=== PATIENT | male | born 1960 | race Caucasian/White ===

== ENCOUNTER 2017-06-20 05:15 | Emergency (ER) | payer MEDICAID, OTHER ==
[~2017-06-20] VITALS: Ht 180.3 cm; Wt 100.0 kg
[~2017-06-20 05:15] MED LIST: ADVAI250I PO; ALBU8I INH; DEPA125T PO; DEPA500T3 PO; FOLI1 PO; THIA50CA PO
[2017-06-20] MEDS ORDERED: PHEN100C PO (05:29)
[2017-06-20] MEDS ORDERED: FAMO20TA2 PO (05:29)
[2017-06-20] MEDS ORDERED: MAPA325T PO (05:29)
[2017-06-20] MEDS ORDERED: DIVA500T PO (05:29)
[2017-06-20] MEDS ORDERED: DONE10TA7 PO (05:29)
[2017-06-20] MEDS ORDERED: TRAZ50TA12 PO (05:29)
[2017-06-20] MEDS ORDERED: LEVO50TA4 PO (05:29)
[2017-06-20] MEDS ORDERED: LORA-373 PO (05:29)
[2017-06-20] MEDS ORDERED: METH500T3 PO (05:29)
[2017-06-20] MEDS ORDERED: ESCI20TA PO (05:29)
[2017-06-20] MEDS ORDERED: ADVA250A INH (05:29)
[2017-06-20] MEDS ORDERED: PHEN300C3 PO (05:29)
[2017-06-20] MEDS ORDERED: HYDR50TA94 PO (05:29)
[2017-06-20] MEDS ORDERED: ALBUAER3 INH (05:29)
[2017-06-20 05:40] VITALS: BP 123/84; PULSE 73; RESP 18; TEMP 98.7
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
[2017-06-20 06:38] LABS: AUTOMATED NEUTROPHIL # 2.6 TH/MM3 (1.8-7.7); BASOPHIL % 0.7 % (0.0-2.0); EOSINOPHIL # 0.4 TH/MM3 (0-0.4); EOSINOPHIL % 6.1 % (0.0-4.0); HEMATOCRIT 39.7 % (39.0-51.0); HEMO FLAGS DIFF FINAL; LYMPH % 44.7 % (9.0-44.0); LYMPHOCYTE # 2.9 TH/MM3 (1.0-4.8); MEAN CELL VOLUME 103.9 FL (80.0-100.0); MEAN CORPUSCULAR HGB CONC 33.7 % (32.0-36.0); MONO % 8.4 % (0.0-8.0); NEUT % 40.1 % (16.0-70.0); PLATELET COUNT 246 TH/MM3 (150-450); RED BLOOD COUNT 3.82 MIL/MM3 (4.50-5.90); RED CELL DISTRIBUTION WIDTH 13.8 % (11.6-17.2); WHITE BLOOD COUNT 6.5 TH/MM3 (4.0-11.0)
[2017-06-20 06:41] LABS: ANION GAP 5 MEQ/L (5-15); BICARBONATE 30.9 MEQ/L (21.0-32.0); BLOOD UREA NITROGEN 21 MG/DL (7-18); CHLORIDE 104 MEQ/L (98-107); GLOMERULAR FILTRATION RATE 93 ML/MIN (>89); POTASSIUM 4.1 MEQ/L (3.5-5.1); SODIUM (NA) 140 MEQ/L (136-145)
[2017-06-20 06:42] LABS: ALCOHOL LESS THAN 3 MG/DL (0-5)
[2017-06-20 11:20] VITALS: BP 136/86; PULSE 74; RESP 18; TEMP 97.7; O2SAT 96
[2017-06-20] MEDS ORDERED: DIVALPROEX DR 500 MG TABEC PO ONE (12:45)
[2017-06-20] MEDS ORDERED: PHENYTOIN SODIUM 100 MG CAP PO ONE (12:45)
[2017-06-20 17:04] VITALS: BP 101/58; PULSE 75; RESP 18
[2017-06-20 20:22] VITALS: BP 111/75; PULSE 88; RESP 20; O2SAT 93
[2017-06-20] MEDS ORDERED: ALBUTEROL SULFATE 90 MCG/ACT HFA 8 GM INHALER INH PRN (21:15)
[2017-06-20] MEDS ORDERED: traZODone HCL 50 MG TAB PO SCH (21:30)
[2017-06-20] MEDS ORDERED: DONEPEZIL HCL 5 MG TAB PO SCH (21:30)
[2017-06-20] MEDS ORDERED: PHENYTOIN SODIUM 100 MG CAP PO SCH (21:30)
[2017-06-20] MEDS: LORazepam 0.5 MG TAB PO SCH (22:13)
[2017-06-20] MEDS: DIVALPROEX DR 500 MG TABEC PO SCH (22:13)
[2017-06-20 22:42] VITALS: BP 104/58; PULSE 68; RESP 18; O2SAT 94
[2017-06-21 06:26] VITALS: BP 120/66; PULSE 81; RESP 18; O2SAT 93
[2017-06-21] MEDS ORDERED: hydrOXYzine HCL 50 MG TAB PO SCH (09:00)
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
--- NOTE | 2017-06-21 09:24 | PD ---
Physical Exam Time Seen by Provider: 09:20 ERNESTO Aguayo has evaluated the patient and lifted Conn act initially be discharged back to his living facility. Data Data Last Documented VS Vital Signs Date Time Temp Pulse Resp B/P (MAP) Pulse Ox O2 Delivery O2 Flow Rate FiO2 06/21/17 06:26 81 18 120/66 (84) 93 06/20/17 22:42 Room Air 06/20/17 11:20 97.7 Orders Orders Complete Blood Count With Diff (06/20/17 05:31) Basic Metabolic Panel (Bmp) (06/20/17 05:31) Psych Screen (06/20/17 05:31) Drug Screen, Random Urine (06/20/17 05:31) Alcohol (Ethanol) (06/20/17 05:31) Diet Regular Basic (06/20/17 Breakfast) Diet Regular Basic (06/20/17 Lunch) Divalproex (Vonda Marrufo) (06/20/17 12:45) Phenytoin (Dilantin) (06/20/17 12:45) Diet Regular Basic (06/20/17 Dinner) Valproic Acid (Depakene) (06/20/17 20:41) Phenytoin (Dilantin) (06/20/17 20:41) Albuterol Hfa Inh (Proair Hfa Inh) (06/20/17 21:15) Divalproex (Vonda Marrufo) (06/20/17 21:30) Donepezil (Aricept) (06/20/17 21:30) Hydroxyzine Hcl (Atarax) (06/21/17 09:00) Lorazepam (Ativan) (06/20/17 21:30) Phenytoin (Dilantin) (06/20/17 21:30) Trazodone (Desyrel) (06/20/17 21:30) Diet Regular Basic (06/21/17 Breakfast) Labs Laboratory Tests Test 06/20/17 06:17 White Blood Count 6.5 TH/MM3 Red Blood Count 3.82 MIL/MM3 Hemoglobin 13.4 GM/DL Hematocrit 39.7 % Mean Corpuscular Volume 103.9 FL Mean Corpuscular Hemoglobin 35.0 PG Mean Corpuscular Hemoglobin Concent 33.7 % Red Cell Distribution Width 13.8 % Platelet Count 246 TH/MM3 Mean Platelet Volume 7.3 FL Neutrophils (%) (Auto) 40.1 % Lymphocytes (%) (Auto) 44.7 % Monocytes (%) (Auto) 8.4 % Eosinophils (%) (Auto) 6.1 % Basophils (%) (Auto) 0.7 % Neutrophils # (Auto) 2.6 TH/MM3 Lymphocytes # (Auto) 2.9 TH/MM3 Monocytes # (Auto) 0.5 TH/MM3 Eosinophils # (Auto) 0.4 TH/MM3 Basophils # (Auto) 0.0 TH/MM3 CBC Comment DIFF FINAL Differential Comment Blood Urea Nitrogen 21 MG/DL Creatinine 0.85 MG/DL Random Glucose 100 MG/DL Calcium Level 8.5 MG/DL Sodium Level 140 MEQ/L Potassium Level 4.1 MEQ/L Chloride Level 104 MEQ/L Carbon Dioxide Level 30.9 MEQ/L Anion Gap 5 MEQ/L Estimat Glomerular Filtration Rate 93 ML/MIN Urine Opiates Screen NEG Urine Barbiturates Screen NEG Phenytoin (Dilantin) Level 18.4 MCG/ML Valproic Acid (Depakene) Level 52 MCG/ML Urine Amphetamines Screen NEG Urine Benzodiazepines Screen NEG Urine Cocaine Screen NEG Urine Cannabinoids Screen NEG Ethyl Alcohol Level LESS THAN 3 MG/DL MDM Supervised Visit with BONI: No Narrative Course ERNESTO Magana has evaluated the patient and lifted Conn act initially be discharged back to his living facility. Patient contract safety. Patient denies suicidal or homicidal ideations. Patient is medically cleared for discharge. Diagnosis Primary Impression: Adjustment disorder Qualified Codes: F43.20 - Adjustment disorder, unspecified Additional Impression: COPD (chronic obstructive pulmonary disease) Qualified Codes: J44.9 - Chronic obstructive pulmonary disease, unspecified Referrals: Primary Care Physician Psychiatrist Patient Instructions: General Instructions, Mood Disorders (ED) Additional Instruction: Contract safety to your self and others Follow-up with psychiatry Follow-up with primary care provider Follow-up with Jaime Wilson Return to the emergency department immediately with worsening of symptoms Disposition: 01 DISCHARGE HOME Condition: Stable Annabel Ley Jun 21, 2017 09:24
[2017-06-21] MEDS: LORazepam 0.5 MG TAB PO SCH (09:36)
[2017-06-21] MEDS: DIVALPROEX DR 500 MG TABEC PO SCH (09:36)
== END 2017-06-21 10:40 | disposition home or self-care (01) ==
LOC: NEPD 05:15 → NEPJ 06-21 10:40
DX: F43.20 Adjustment disorder, unspecified (principal); J44.9 Chronic obstructive pulmonary disease, unspecified; F17.210 Nicotine dependence, cigarettes, uncomplicated; B19.20 Unspecified viral hepatitis C without hepatic coma; I10 Essential (primary) hypertension; Z79.899 Other long term (current) drug therapy
CPT/HCPCS: 80048; 80164; 80185; 80307; 85025; 99284